=== PATIENT | female | born 1980 | race Caucasian/White ===

== ENCOUNTER 2021-08-17 01:41 | Emergency (ER) | payer OTHER ==
[~2021-08-17] VITALS: Ht 167.6 cm; Wt 65.8 kg
--- NOTE | 2021-08-17 07:30 | NUR ---
ASSESSED PT ON BED ASLEEP EASILY AROUSABLE, NOT IN RESPIRATORY DISTRESS, V/S STABLEM KEPT RESTED AND COMFORTABLE. WILL CONTINUE TO MONITOR.
--- NOTE | 2021-08-17 11:19 | NUR ---
SPOKE TO PT FRIEND MELISSA [phone]
--- NOTE | 2021-08-17 14:31 | NUR ---
Patient discharged to home in stable condition. Written and verbal after care instructions given. Patient verbalizes understanding of instruction.
[2021-08-17 14:33] VITALS: BP 118/64
== END 2021-08-17 14:33 | disposition home or self-care (01) ==
LOC: ER 03:00
DX: F10.129 Alcohol abuse with intoxication, unspecified (principal); R41.82 Altered mental status, unspecified; Y90.8 Blood alcohol level of 240 mg/100 ml or more
CPT/HCPCS: 36415; G0480